=== PATIENT | female | born 1955 | race Caucasian/White ===

== ENCOUNTER 2017-08-28 09:58 | Inpatient (IN) | payer OTHER ==
[~2017-08-28] VITALS: Ht 165.1 cm; Wt 81.8 kg
[~2017-08-28 09:58] MED LIST: ASPI-482 PO; ATOR40TA PO; CALC-77 PO; CALC500T30 PO; CARV12.5 PO; CHLO25TA PO; CLON0.1T12 PO; DILT240C32 PO; GABA-587 PO; LOSA25TA PO; TRAM50TA PO; VIT1TABL2 PO
--- NOTE | 2017-08-28 10:11 | PHYS DOC ---
Past History Past Medical History: Hypertension Past Surgical History: Hysterectomy, Lumbar Laminectomy Smoking: Cigar Alcohol Use: Heavy Drug Use: None Adult General HPI HPI Patient is a 62-year-old female presenting to the emergency department for evaluation of cough and shortness of breath. Patient has been ill for approximately one week with upper respiratory symptoms and she was at a recheck today and was worsening and had a room air auction saturation in the mid to low 80s. They told her to come to the emergency department for further evaluation. Patient says that she has a nonproductive cough and she denies any pain or swelling. She described a vague cardiac history where part of her heart did not beat fully on a stress test which she denied any outright congestive heart failure. She says that she used to smoke cigarettes but now only smokes cigars but denies any history of asthma or COPD. She is mild to moderate short of breath after walking to the room but is nontoxic in appearance with a room air sat of 85%. Review of Systems Review of Systems Constitutional: Denies fever or chills [] Eyes: Denies change in visual acuity, redness, or eye pain [] HENT: + nasal congestion, sore throat [] Respiratory: + cough, shortness of breath [] Cardiovascular: No additional information not addressed in HPI [] GI: Denies abdominal pain, nausea, vomiting, bloody stools or diarrhea [] : Denies dysuria or hematuria [] Musculoskeletal: Denies back pain or joint pain [] Integument: Denies rash or skin lesions [] Neurologic: Denies headache, focal weakness or sensory changes [] All other systems were reviewed and found to be within normal limits, except as documented in this note. Allergies Allergies Allergies Coded Allergies Type Severity Reaction Last Updated Verified No Known Drug Allergies 01/18/14 No Physical Exam Physical Exam Constitutional: Well developed, well nourished, mild to moderate respiratory distress, non-toxic appearance. [] HENT: Normocephalic, atraumatic, bilateral external ears normal, oropharynx moist, no oral exudates, nasal turbinates boggy and swollen Eyes: PERRLA, EOMI, conjunctiva normal, no discharge. [] Neck: Normal range of motion, no tenderness, supple, no stridor. [] Cardiovascular:Heart rate regular rhythm, no murmur [] Lungs & Thorax: Bilateral breath sounds diminished in all lung aceves with expiratory wheezes auscultated. Abdomen: Bowel sounds normal, soft, no tenderness, no masses, no pulsatile masses. [] Skin: Warm, dry, no erythema, no rash. [] Back: No tenderness, no CVA tenderness. [] Extremities: No tenderness, no cyanosis, no clubbing, ROM intact, no edema. [] Neurologic: Alert and oriented X 3, normal motor function, normal sensory function, no focal deficits noted. [] EKG EKG Sinus rhythm at 72 beats per minutes with normal axis no obvious ST elevation or depression and normal T waves Radiology/Procedures Radiology/Procedures Portable chest, 08/28/2017: History: Shortness of breath, URI The heart size and pulmonary vascularity are normal. No pulmonary infiltrates are seen. There is no evidence of pleural fluid. Spinal stimulator leads are projected over the lower thoracic spinal canal. IMPRESSION: No acute cardiopulmonary abnormality is detected. DICTATED AND SIGNED BY: VENUS MCINTYRE MD DATE: 08/28/17 1041 Course & Med Decision Making Course & Med Decision Making Clinically patient has upper respiratory tract infection which is causing her postnasal drip and resultant wheezing. She was given multiple breathing treatments but unfortunately was still requiring oxygen to maintain sats in the low 90s. Given she is persistently hypoxic she will be admitted for further observation and treatment. She did receive a dose of methylprednisolone emergency department. I highly doubt cardiac or pulmonary embolism as the etiology to her hypoxia and she is not tachycardic. The lab cannot run a BNP at this time and has to be sent to another facility so that is pending at this point. Patient admitted in improved condition. Dragon Disclaimer Dragon Disclaimer This electronic medical record was generated, in whole or in part, using a voice recognition dictation system. Departure Departure: Impression: Primary Impression: Hypoxia Additional Impressions: URI (upper respiratory infection) Wheezing Hypokalemia Disposition: ADMITTED INPATIENT Admitting Physician: Mitesh Herrera Condition: IMPROVED Referrals: MARIA TERESA LAYNE (PCP) Problem Qualifiers ZAYNAB TREJO DO Aug 28, 2017 10:11
[2017-08-28] MEDS ORDERED: methylPREDNISolone SOD SUCC PF 125 MG/2 ML VIAL. IV ONE (10:30)
[2017-08-28] MEDS ORDERED: BENZONATATE 100 MG CAPSULE. PO ONE (10:30)
[2017-08-28] MEDS ORDERED: IPRATRPIUM/ALBUTEROL 0.5/2.5MG 3 ML NEBU. NEB ONE (10:30)
--- NOTE | 2017-08-28 10:33 | EKG ---
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
--- NOTE | 2017-08-28 10:46 | RAD ---
Portable chest, 08/28/2017: History: Shortness of breath, URI The heart size and pulmonary vascularity are normal. No pulmonary infiltrates are seen. There is no evidence of pleural fluid. Spinal stimulator leads are projected over the lower thoracic spinal canal. IMPRESSION: No acute cardiopulmonary abnormality is detected.
[2017-08-28 11:03] LABS: BASO % 1 % (0-3); EOS % 1 % (0-3); HEMOGLOBIN 14.2 g/dL (12.0-15.5); LYMPH # 1.2 x10^3/uL (1.0-4.8); LYMPH % 15 % (24-48); MEAN CORPUSCULAR HEMOGLOBIN 35 pg (25-35); MEAN CORPUSCULAR HGB CONC 36 g/dL (31-37); MEAN CORPUSCULAR VOLUME 100 fL (79-100); MONO # 0.9 x10^3/uL (0.0-1.1); MONO % 12 % (0-9); NEUT # 5.4 x10^3uL (1.8-7.7); NEUT % 72 % (31-73); PLATELET COUNT 214 x10^3/uL (140-400); RED BLOOD COUNT 4.02 x10^6/uL (3.50-5.40); RED CELL DISTRIBUTION WIDTH 11.8 % (11.5-14.5); WHITE BLOOD COUNT 7.6 x10^3/uL (4.0-11.0)
[2017-08-28 11:10] LABS: POTASSIUM ISTAT 3.2 mmol/L (3.5-5.0)
[2017-08-28 11:11] LABS: HEMOGLOBIN ISTAT 13.6 gm/dL
[2017-08-28] MEDS ORDERED: ALBUTEROL SULFATE 2.5 MG/3 ML NEBU. NEB ONE (11:30)
[2017-08-28 11:41] LABS: INFLUENZA A PATIENT NEGATIVE (NEGATIVE); INFLUENZA B PATIENT NEGATIVE (NEGATIVE)
[2017-08-28] MEDS ORDERED: POTASSIUM CL 40MEQ IN 0.9%NACL 1,000 ML IV ONE (11:45)
[2017-08-28] MEDS ORDERED: POTASSIUM CHLORIDE 20 MEQ TABLET.ER. PO ONE (11:45)
[2017-08-28] MEDS ORDERED: MAGNESIUM OXIDE 400 MG TABLET PO ONE (11:45)
[2017-08-28] MEDS ORDERED: ONDANSETRON PF 4 MG/2 ML VIAL. IV PRN (11:45)
[2017-08-28 14:09] LABS: ALBUMIN 3.8 g/dL (3.4-5.0); ALK PHOS 70 U/L (46-116); ALT (SGPT) 36 U/L (14-59); AST (SGOT) 44 U/L (15-37); TOTAL BILIRUBIN 0.8 mg/dL (0.2-1.0); TOTAL PROTEIN 7.3 g/dL (6.4-8.2)
[2017-08-28 14:17] LABS: DIRECT BILIRUBIN < 0.1 mg/dL (0.0-0.2)
[2017-08-28] MEDS ORDERED: ASCO10002 PO (15:03)
[2017-08-28] MEDS ORDERED: TELM80TA PO (15:03)
[2017-08-28 15:08] VITALS: BP 155/87
[2017-08-28] MEDS ORDERED: AMLO10TA4 PO (18:06)
--- NOTE | 2017-08-28 18:32 | HP ---
ADMIT DATE: 08/28/2017 HISTORY OF PRESENT ILLNESS: The patient is a 62-year-old female patient who came to the Emergency Department for evaluation of cough and shortness of breath. She stated that she has been feeling ill for approximately 1 week with upper respiratory symptoms. She went to [facility] as her symptoms have worsened and her saturation on room air was down to 80%. She was told to come to the Emergency Department for further evaluation. She did complain of mostly dry non-productive cough, but denied any chills, rigors or fever. She stated that she has been followed by the railway track worker for what seems to be a positive stress test every 6 months, but denied any diagnosis of congestive heart failure. She has never had any stents in her heart. She used to smoke cigarettes but quit about 8 years ago. She now smokes cigars, she smokes 2 cigars a day but has never been diagnosed with bronchial asthma or COPD. She was evaluated in the Emergency Room, was found to be hypoxic; however, she was also found to be hyponatremic, hypokalemic and a decision was made to admit her to replenish her electrolytes and to treat her what seemed to be a tracheobronchitis and perhaps COPD exacerbation. PAST MEDICAL HISTORY: Significant for hypertension, hyperlipidemia, coronary artery disease, osteoarthritis, degenerative disk disease and multiple arthritis and arthralgias, although she stated that she has never been given any particular name to all her complaints. PAST MEDICAL HISTORY: Significant for 3 spinal surgery and nerve stimulator implant and total abdominal hysterectomy, bilateral salpingo-oophorectomy. ALLERGIES: He has no known drug allergies. MEDICATIONS: He is currently on following medications: Ascorbic acid 1000 mg once a day, aspirin 81 mg once a day, atorvastatin calcium 40 mg at bedtime, carvedilol 12.5 mg twice a day, chlorthalidone 25 mg daily, gabapentin 400 mg 3 times a day, Micardis 80 mg once a day and tramadol 50 mg every 6 hours. FAMILY HISTORY: She has 3 brothers and 1 sister. Her older brother has similar medical complaints like her. SOCIAL HISTORY: She is , has 2 stepsons. She smokes 2 cigars a day, quit smoking cigarettes about 8 years ago. She drinks 2 glasses of wine every night. 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 REVIEW OF SYSTEMS: She denied any blurring of vision, cataract, glaucoma or macular degeneration. Denied any earache, tinnitus or sensorineural deafness. Denied any nosebleeds, stuffy nose or postnasal drip. Denied any sore throat, sore tongue, toothache, hoarseness of voice or difficulty swallowing. She denied any nausea, vomiting, diarrhea or constipation. Denied any hematemesis, melena or hematochezia. Denied any dysuria, frequency or hematuria. She denied any chest pain. Did complain of shortness of breath, cough, which is mostly dry. Denied any chills, rigors, or fever. Denied any dizziness, lightheadedness, or vertigo. PHYSICAL EXAMINATION: GENERAL: On examining her, she was sitting on the edge of the bed comfortably, in no apparent respiratory distress. She was pale, but no jaundice, cyanosis, or thyromegaly. No jugular venous distension. No limb edema. VITAL SIGNS: Her heart rate was 78, blood pressure 116/72, temperature was 98.5, respiratory rate 20, and oxygen saturation was only 87% on room air and improved to 93% on 4 liters of oxygen. HEENT: Showed normocephalic, atraumatic. NECK: Supple. HEART: Showed normal first and second heart sounds with no gallop, rub or murmur. CHEST: ____ She has actually crackles in the left side posteriorly. I could not appreciate any rhonchi. ABDOMEN: Distended, soft, and nontender. NEUROLOGIC: She is awake, alert, responding appropriately. All cranial nerves intact. EXTREMITIES: She moves extremities without difficulty. She ambulates without assistance or assistive devices. LABORATORY DATA: Her lab work on admission showed a white cell count of 7600, hemoglobin 14, hematocrit 40, MCV 100, and platelet count of 214,000 with normal manual differential. Her chemistry showed that her serum sodium was 129, potassium 3.2, chloride 81, bicarbonate 38, anion gap of 15, BUN 15, creatinine 0.6, glucose was 99 and ionized calcium was 1.1. Total bilirubin, AST, ALT, alkaline phosphatase were normal. Her total protein was 7.3, albumin 3.8. Her influenza A and B were negative. Her chest x-ray showed the heart size and pulmonary vascularity are normal. No pulmonary infiltrates are seen. There is no evidence of pleural fluid, spinal stimulator leads are projected over the lower thoracic spinal canal. She has no acute cardiopulmonary abnormalities detected. IMPRESSION: In summary, this is a 62-year-old female patient who used to be a smoker of cigarettes, now cigars who basically came with increasing shortness of breath, cough, marked hypoxia. PLAN: My plan is to treat her with the bronchodilator, steroids and antibiotics. Continue with IV fluid to replenish her sodium and potassium deficits and hold her hydrochlorothiazide as probably that could be the reason for his as well as Micardis. I will repeat all her lab work tomorrow and we might have to do a CT scan of the chest with PE protocol and also arterial blood gases if her bicarbonate continued to rise. ROCIO TRONCOSO MD DR: NATHANIEL/nayan JOB#: [id number] / [id number]
[2017-08-28 19:00] VITALS: BP 143/84
[2017-08-28] MEDS: POTASSIUM CL 40MEQ IN 0.9%NACL 1,000 ML IV SCH (19:44)
[2017-08-28] MEDS: cefTRIAXone IV Push 1 GM VIAL. IVP SCH ×2 (19:44→20:04)
[2017-08-28] MEDS: ASCORBIC ACID 500 MG TABLET PO SCH (21:28)
[2017-08-28] MEDS: MONTELUKAST 10 MG TABLET. PO SCH (21:29)
[2017-08-28] MEDS: CARVEDILOL 12.5 MG TABLET PO SCH (21:29)
[2017-08-28] MEDS: ATORVASTATIN CALCIUM 20 MG TABLET PO SCH (21:29)
[2017-08-28] MEDS: traMADol 50 MG TABLET PO PRN (21:41)
[2017-08-28] MEDS: methylPREDNISolone SOD SUCC PF 40 MG/ML VIAL. IV SCH (22:10)
[2017-08-28] MEDS: IPRATRPIUM/ALBUTEROL 0.5/2.5MG 3 ML NEBU. NEB SCH (22:53)
[2017-08-28 23:06] VITALS: BP 129/74
[2017-08-29] MEDS: POTASSIUM CL 40MEQ IN 0.9%NACL 1,000 ML IV SCH ×3 (01:34→13:51)
[2017-08-29] MEDS: IPRATRPIUM/ALBUTEROL 0.5/2.5MG 3 ML NEBU. NEB SCH ×4 (05:50→20:43)
[2017-08-29 05:57] VITALS: BP 170/94
[2017-08-29] MEDS: methylPREDNISolone SOD SUCC PF 40 MG/ML VIAL. IV SCH ×2 (06:33→13:52)
[2017-08-29] MEDS: traMADol 50 MG TABLET PO PRN ×2 (07:27→13:49)
[2017-08-29 07:36] LABS: ALBUMIN 3.1 g/dL (3.4-5.0); ALBUMIN/GLOBULIN RATIO 0.8 (1.0-1.7); CALCIUM 8.9 mg/dL (8.5-10.1); CREATININE 0.4 mg/dL (0.6-1.0); GFR 162.8; TOTAL BILIRUBIN 0.5 mg/dL (0.2-1.0); TOTAL PROTEIN 7.2 g/dL (6.4-8.2)
[2017-08-29 07:39] LABS: POTASSIUM 3.7 mmol/L (3.5-5.1)
[2017-08-29 07:52] LABS: BASO % 0 % (0-3); EOS % 0 % (0-3); HEMOGLOBIN 14.9 g/dL (12.0-15.5); LYMPH # 0.8 x10^3/uL (1.0-4.8); LYMPH % 5 % (24-48); MEAN CORPUSCULAR HEMOGLOBIN 35 pg (25-35); MEAN CORPUSCULAR HGB CONC 36 g/dL (31-37); MEAN CORPUSCULAR VOLUME 99 fL (79-100); MONO # 0.9 x10^3/uL (0.0-1.1); MONO % 5 % (0-9); NEUT # 14.5 x10^3uL (1.8-7.7); NEUT % 89 % (31-73); PLATELET COUNT 257 x10^3/uL (140-400); RED BLOOD COUNT 4.25 x10^6/uL (3.50-5.40); RED CELL DISTRIBUTION WIDTH 11.8 % (11.5-14.5); WHITE BLOOD COUNT 16.3 x10^3/uL (4.0-11.0)
[2017-08-29] MEDS: AZITHROMYCIN 250 MG TABLET. PO SCH (08:38)
[2017-08-29] MEDS: CARVEDILOL 12.5 MG TABLET PO SCH ×2 (08:39→20:03)
[2017-08-29] MEDS: amLODIPine BESYLATE 10 MG TABLET PO SCH (08:39)
[2017-08-29] MEDS: CALCIUM CARB/VIT D3 500/200 TABLET PO SCH ×2 (08:39→17:18)
[2017-08-29] MEDS: GABAPENTIN 400 MG CAPSULE. PO SCH ×3 (08:39→17:18)
[2017-08-29] MEDS ORDERED: IBUP800T19 PO (08:45)
[2017-08-29] MEDS ORDERED: PNEUMOC CONJ VACC 23-VALENT 0.5 ML VIAL. VAX IM ONE (09:00)
[2017-08-29] MEDS ORDERED: ASPIRIN ENTERIC COATED 81 MG TABLET.DR. PO SCH (09:00)
[2017-08-29 09:05] LABS: % BANDS 7 % (0-9); % LYMPHS 7 % (24-48); % MONOS 7 % (0-10); % SEGS 79 % (35-66)
[2017-08-29 09:06] LABS: PLT ESTIMATE ADEQUATE (ADEQUATE); POLYCHROMASIA SLIGHT
[2017-08-29 10:58] VITALS: BP 117/72
[2017-08-29] MEDS: LACTOBACILLUS RHAMNOSUS GG 1 CAPSULE. PO SCH ×2 (12:19→20:03)
[2017-08-29] MEDS ORDERED: IBUPROFEN 800 MG TABLET. PO SCH (12:30)
[2017-08-29 16:24] VITALS: BP 131/78
[2017-08-29] MEDS ORDERED: traMADol 50 MG TABLET PO PRN ×2 (17:45)
[2017-08-29] MEDS: traMADol 50 MG TABLET PO SCH ×2 (18:00→21:30)
[2017-08-29] MEDS: IBUPROFEN 800 MG TABLET. PO SCH (18:01)
[2017-08-29] MEDS: cefTRIAXone IV Push 1 GM VIAL. IVP SCH (18:02)
[2017-08-29 19:00] VITALS: BP 152/86
[2017-08-29] MEDS: MONTELUKAST 10 MG TABLET. PO SCH (20:03)
[2017-08-29] MEDS: ATORVASTATIN CALCIUM 20 MG TABLET PO SCH (20:03)
[2017-08-29] MEDS: ASCORBIC ACID 500 MG TABLET PO SCH (20:03)
[2017-08-29] MEDS: ASPIRIN ENTERIC COATED 81 MG TABLET.DR. PO SCH (21:00)
--- NOTE | 2017-08-29 22:48 | PN ---
DATE: 08/29/2017 SUBJECTIVE: The patient is resting slightly propped up in bed, in no apparent distress. She continued to be somewhat hypoxic. Her oxygen saturation is only 91% on 3 liters of oxygen. However, she seemed to be less tachypneic than yesterday. PHYSICAL EXAMINATION: GENERAL: When I examined her, she looked pale, but no jaundice, cyanosis, or thyromegaly. No jugular venous distension. No limb edema. VITAL SIGNS: Her heart rate was 74, blood pressure was 117/72, temperature was 98.____, respiratory rate 20, and oxygen saturation was 93% on 3 liters of oxygen. HEAD, EYES, EARS, NOSE AND THROAT: Showed normocephalic, atraumatic. NECK: Supple. HEART: Showed normal first and second sounds. No gallop, rub or murmur. CHEST: Showed central trachea, equal reduced expansion, reduced air entry, vesicular breath sounds, very few scattered rhonchi, could not appreciate any crepitation. ABDOMEN: Scaphoid, soft, nontender. NEUROLOGIC: She is awake, alert, responding appropriately. Cranial nerves are intact. She moves her extremities without difficulty. She ambulates without assistance or assistive devices. Her intake over the last 24 hours was 1960, no output was recorded. LABORATORY DATA: Her lab work this morning showed a serum sodium is slightly up at 131, potassium up to 3.7, chloride was 90, bicarbonate 33, anion gap of 8, BUN was 8, creatinine 0.4. Her estimated GFR was 163 mL per minute. Her glucose 159, calcium was 8.9. Total bilirubin, AST, ALT, and alkaline phosphatase were normal. Her total protein was 7.2, albumin 3.1. Her influenza A and B were negative. Her cultures still negative at this time. ASSESSMENT: 1. Acute hypoxic respiratory failure. 2. Chronic obstructive pulmonary disease exacerbation. 3. Probable tracheobronchitis. My plan is to continue with IV fluid, IV steroids. 4. She also has hyponatremia and hypokalemia. PLAN: My plan is to continue with bronchodilator, steroids and antibiotic. Continue IV fluid and replenish her potassium and sodium and hopefully by tomorrow, we can get her off oxygen and can be discharged home on tapering course of steroids as well as antibiotics. ROCIO TRONCOSO MD DR: Mark JOB#: [id number] / [id number]
[2017-08-29 23:08] VITALS: BP 149/85
[2017-08-30] MEDS: POTASSIUM CL 40MEQ IN 0.9%NACL 1,000 ML IV SCH ×3 (00:45→20:00)
[2017-08-30] MEDS: methylPREDNISolone SOD SUCC PF 40 MG/ML VIAL. IV SCH ×2 (01:44→13:09)
[2017-08-30] MEDS: GABAPENTIN 400 MG CAPSULE. PO SCH ×3 (04:33→17:11)
[2017-08-30] MEDS: IBUPROFEN 800 MG TABLET. PO SCH ×3 (04:34→17:12)
[2017-08-30] MEDS: traMADol 50 MG TABLET PO SCH ×4 (04:34→20:55)
[2017-08-30 05:22] VITALS: BP 162/82
[2017-08-30] MEDS: IPRATRPIUM/ALBUTEROL 0.5/2.5MG 3 ML NEBU. NEB SCH ×4 (05:28→20:39)
[2017-08-30] MEDS: amLODIPine BESYLATE 10 MG TABLET PO SCH (08:50)
[2017-08-30] MEDS: CALCIUM CARB/VIT D3 500/200 TABLET PO SCH ×2 (08:50→17:11)
[2017-08-30] MEDS: CARVEDILOL 12.5 MG TABLET PO SCH ×2 (08:50→20:54)
[2017-08-30] MEDS: AZITHROMYCIN 250 MG TABLET. PO SCH (08:51)
[2017-08-30] MEDS: LACTOBACILLUS RHAMNOSUS GG 1 CAPSULE. PO SCH ×2 (08:51→20:54)
[2017-08-30 10:43] VITALS: BP 107/69
[2017-08-30 15:10] VITALS: BP 155/89
[2017-08-30] MEDS ORDERED: IOHEXOL 300 MG/ML 75 ML VIAL. IV ONE (16:45)
[2017-08-30] MEDS ORDERED: CONTRAST GIVEN MC PRN (17:00)
[2017-08-30] MEDS: cefTRIAXone IV Push 1 GM VIAL. IVP SCH (17:15)
--- NOTE | 2017-08-30 18:16 | RAD ---
CTA OF THE CHEST WITH AND WITHOUT CONTRAST Clinical indications: Shortness of breath for 3 days. History of COPD. Hypoxia. Technique: Noncontrast axial localizer was performed. After IV infusion of 75 cc of Isovue-370, helical CT scanning of the chest was performed using the CT pulmonary embolism protocol. A coronal MIP reconstruction was generated. Comparison: None available. Findings: No pulmonary embolism is evident. No thoracic aortic dissection or focal aneurysmal dilatation is seen. Calcified atheromatous disease of the coronary arteries is seen. No pericardial effusion is seen. Heart size is within normal limits. No enlarged thoracic lymphadenopathy is seen. Decreased inspiration is seen. Bibasilar atelectasis is evident. More consolidative infiltrate is seen within the posterior right lower lobe. Certainly underlying pneumonia could be present here. No pleural effusion or pneumothorax is seen. The proximal bronchial tree is patent. No adrenal mass is evident. No osteolytic process is seen. IMPRESSION: No pulmonary embolism. Decreased inspiration with bibasilar atelectasis. More consolidative lung infiltrate within the right lower lobe. This could represent more prominent atelectasis or pneumonia. Calcified atheromatous disease of the coronary arteries. Electronically signed by: Simone Ceron MD (08/30/2017 6:13 PM) [facility]
[2017-08-30 19:18] VITALS: BP 138/84
[2017-08-30] MEDS: ASPIRIN ENTERIC COATED 81 MG TABLET.DR. PO SCH (20:53)
[2017-08-30] MEDS: ATORVASTATIN CALCIUM 20 MG TABLET PO SCH (20:54)
[2017-08-30] MEDS: MONTELUKAST 10 MG TABLET. PO SCH (20:54)
[2017-08-30] MEDS: ASCORBIC ACID 500 MG TABLET PO SCH (20:55)
[2017-08-30 23:10] VITALS: BP 162/98
--- NOTE | 2017-08-30 23:31 | PN ---
DATE: 08/30/2017 SUBJECTIVE: The patient was sitting in the bed comfortably in no apparent distress. However, unfortunately she continued to be hypoxic, even at rest the oxygen saturation dropped down to 87% on room air, on exertion her oxygen saturation dropped down to 84%, although the patient denied any chest pain or shortness of breath. OBJECTIVE: GENERAL: When I examined her today, she looked pale, no jaundice, cyanosis, or thyromegaly. No jugular venous distension. No limb edema. VITAL SIGNS: Her heart rate was 81, blood pressure was 155/89, temperature was 97.6, respiratory rate 20, and oxygen saturation was 92 on 3 liters of oxygen, was 87 on room air sitting and 84 walking. HEAD, EYES, EARS, NOSE, AND THROAT: Showed normocephalic, atraumatic. NECK: Supple. HEART: Showed normal first and second heart sounds with no gallop, rub, or murmur. CHEST: Shows central trachea, equal reduced expansion, reduced air entry, vesicular sounds. I could not really appreciate any crepitation or rhonchi. ABDOMEN: Distended, soft, nontender. NEUROLOGIC: She is awake, alert, responding appropriately. Cranial nerves intact. She moves extremities without difficulty. She ambulates with a walker. Her intake over the last 24 hours was 2300 and out was not recorded. No lab work was done today. ASSESSMENT: 1. Acute hypoxic respiratory failure. 2. Chronic obstructive pulmonary disease exacerbation. 3. Probable tracheobronchitis. 4. Hyponatremia and hypokalemia. PLAN: To continue the IV fluid, continue with steroids and bronchodilator. Continue IV antibiotic in the form of Rocephin and Zithromax. I will repeat all her lab works tomorrow. I also arranged for her to have a CT angio of the chest to eliminate the possibility of pulmonary emboli with a plan to discharge her home with home oxygen tomorrow. ROCIO TRONCOSO MD DR: NATHANIEL/nayan JOB#: [id number] / [id number]
[2017-08-31] MEDS: methylPREDNISolone SOD SUCC PF 40 MG/ML VIAL. IV SCH ×2 (01:35→13:56)
[2017-08-31] MEDS: POTASSIUM CL 40MEQ IN 0.9%NACL 1,000 ML IV SCH (03:33)
[2017-08-31] MEDS: traMADol 50 MG TABLET PO SCH ×2 (04:38→11:07)
[2017-08-31] MEDS: IBUPROFEN 800 MG TABLET. PO SCH ×2 (04:38→11:07)
[2017-08-31] MEDS: GABAPENTIN 400 MG CAPSULE. PO SCH ×2 (04:38→11:07)
[2017-08-31] MEDS: IPRATRPIUM/ALBUTEROL 0.5/2.5MG 3 ML NEBU. NEB SCH ×2 (04:56→09:50)
[2017-08-31 05:37] VITALS: BP 149/76
[2017-08-31 07:45] LABS: BASO % 0 % (0-3); EOS % 0 % (0-3); HEMATOCRIT 43.1 % (36.0-47.0); HEMOGLOBIN 14.9 g/dL (12.0-15.5); LYMPH # 0.7 x10^3/uL (1.0-4.8); LYMPH % 6 % (24-48); MEAN CORPUSCULAR HEMOGLOBIN 35 pg (25-35); MEAN CORPUSCULAR HGB CONC 35 g/dL (31-37); MEAN CORPUSCULAR VOLUME 101 fL (79-100); MONO # 0.6 x10^3/uL (0.0-1.1); MONO % 5 % (0-9); NEUT # 10.4 x10^3uL (1.8-7.7); NEUT % 89 % (31-73); PLATELET COUNT 338 x10^3/uL (140-400); RED BLOOD COUNT 4.28 x10^6/uL (3.50-5.40); RED CELL DISTRIBUTION WIDTH 12.1 % (11.5-14.5); WHITE BLOOD COUNT 11.7 x10^3/uL (4.0-11.0)
[2017-08-31 07:47] LABS: ALBUMIN/GLOBULIN RATIO 0.7 (1.0-1.7); CALCIUM 8.9 mg/dL (8.5-10.1); CREATININE 0.5 mg/dL (0.6-1.0); GFR 125.9; MAGNESIUM 1.6 mg/dL (1.8-2.4); POTASSIUM 4.3 mmol/L (3.5-5.1); TOTAL BILIRUBIN 0.3 mg/dL (0.2-1.0); TOTAL PROTEIN 7.3 g/dL (6.4-8.2)
[2017-08-31] MEDS: CALCIUM CARB/VIT D3 500/200 TABLET PO SCH (08:00)
[2017-08-31] MEDS: CARVEDILOL 12.5 MG TABLET PO SCH (08:32)
[2017-08-31] MEDS: LACTOBACILLUS RHAMNOSUS GG 1 CAPSULE. PO SCH (08:32)
[2017-08-31] MEDS: amLODIPine BESYLATE 10 MG TABLET PO SCH (08:33)
[2017-08-31] MEDS: AZITHROMYCIN 250 MG TABLET. PO SCH (08:33)
[2017-08-31 09:45] VITALS: BP 151/84
[2017-08-31] MEDS ORDERED: MAGNESIUM SULFATE 2GM 50 ML IV ONE (10:30)
[2017-08-31 14:37] VITALS: BP 147/84
[2017-08-31] MEDS ORDERED: AZIT250T PO (15:51)
[2017-08-31] MEDS ORDERED: CEFP200T PO (15:52)
--- NOTE | 2017-08-31 18:55 | DS ---
DATE OF DISCHARGE: 08/31/2017 HOSPITAL COURSE: The patient is a 62-year-old female patient who came to the Emergency Room with the complaint of cough with shortness of breath that has been going on for almost a week. She was evaluated at [facility] and her symptoms have worsened and there, she was found to be hypoxic with an oxygen saturation of 180%. She was sent to the Emergency Room of [facility] and was basically admitted with an acute hypoxic respiratory failure, chronic obstructive pulmonary disease exacerbation, probable tracheobronchitis, and she was also hyponatremic and hypokalemic. We did start her on inhalers as well as steroids to better with antibiotics in the form of Zithromax and Rocephin. Her potassium and sodium were replenished and basically, I did also a CT scan of the chest with PE protocol, which basically showed no evidence of pulmonary emboli; however, the patient did have bibasilar atelectasis evident more, consolidated infiltrate is seen within the posterior right lower lobe with the underlying pneumonia could represent here. The patient has no pneumothorax, no pleural effusion. The proximal bronchial tree is patent. No adrenal mass is evident. No osteolytic process seen. We did check her oxygen at rest and to exertion, and she definitely is hypoxic, and with hypoxia worsens with exertion. In fact, yesterday when she walked, her oxygen saturation dropped down to 82%, so arranged her to go home with home oxygen. PHYSICAL EXAMINATION: GENERAL: When I saw her today, she looked well and was clearly in no apparent respiratory distress, slightly pale, but no jaundice, cyanosis or thyromegaly. No jugular venous distention. No limb edema. VITAL SIGNS: His heart rate was 83, blood pressure 147/84, temperature was 97.5, respiratory rate 20, and oxygen saturation was 93% on 3 liters of oxygen. HEAD, EYES, EARS, NOSE AND THROAT: Showed normocephalic, atraumatic. NECK: Supple. HEART: Showed normal first and second heart sounds with no gallop, rub or murmur. CHEST: Shows central trachea, equal bilateral expansion, air entry, vesicular sounds crepitation or rhonchi. ABDOMEN: Distended, soft, and nontender. NEUROLOGIC: She is awake, alert, responding appropriately. Cranial nerves intact. She moves extremities without difficulty. She ambulates with a walker. She has chronic low back pain. LABORATORY DATA: This morning showed a serum sodium 131, potassium 4.3, chloride 96, bicarbonate 29, anion gap of 6, BUN 11, creatinine 0.5, estimated GFR was 130.6 mL per minute. Her glucose 137, calcium was 8.9, magnesium was 1.6. Total bilirubin, AST, ALT, alkaline phosphatase were normal. Total protein 7.3, albumin was 3. Her white cell count was 11,700, hemoglobin 14.9, hematocrit 43, MCV 101, and platelet count of 338,000. Her chest x-ray was essentially unremarkable; however, CT scan showed that she has no pulmonary embolism; however, it does show that she has consolidative lung infiltrate within the right lower lobe, it could represent prominent atelectasis versus pneumonia. She has also calcified atheromatous disease of the coronary arteries. FINAL DISCHARGE DIAGNOSES: 1. Acute hypoxic respiratory failure. 2. Chronic obstructive pulmonary disease exacerbation. 3. Right lower lobe pneumonia. 4. Hyponatremia, improved. 5. Hypokalemia, resolved. The patient should finish the course of antibiotic, continue with tapering course of steroids. I suggested that she should make an appointment to be seen by Dr. Oconnell and Dr. Travis at [facility]. ROCIO TRONCOSO MD DR: NATHANIEL/nayan JOB#: [id number] / [id number]
== END 2017-08-31 16:45 | disposition home or self-care (01) | DRG 193 ==
LOC: ER 09:58 → 1 SOUTH 12:27
PROVIDERS: ADMIT Internal Medicine; ATTEND Internal Medicine
DX: J18.1 Lobar pneumonia, unspecified organism (principal); J96.01 Acute respiratory failure with hypoxia; E87.1 Hypo-osmolality and hyponatremia; J44.0 Chronic obstructive pulmonary disease with (acute) lower respiratory infection; J44.1 Chronic obstructive pulmonary disease with (acute) exacerbation; E78.5 Hyperlipidemia, unspecified; E87.6 Hypokalemia; F17.290 Nicotine dependence, other tobacco product, uncomplicated; I10 Essential (primary) hypertension; I25.10 Atherosclerotic heart disease of native coronary artery without angina pectoris; M19.90 Unspecified osteoarthritis, unspecified site; Z90.710 Acquired absence of both cervix and uterus; Z90.722 Acquired absence of ovaries, bilateral
CPT/HCPCS: 36415; 71045; 71275; 80047; 80053; 80076; 83735; 83880; 84484; 85007; 85025; 85610; 87804; 90732; 93005; 94640; 94760; 96374; J0456; J0696; J2920; J2930; J3475; J7613; J7620; Q9967; 99285-25

== ENCOUNTER 2020-04-14 23:10 | Emergency (ER) | payer OTHER ==
[~2020-04-14] VITALS: Ht 162.6 cm; Wt 92.9 kg
[~2020-04-14 23:10] MED LIST changes: +AMLO10TA4 PO; +ASCO100019 PO; +AZIT250T PO; +CEFP200T PO; -CHLO25TA PO; +CHLO25TA9 PO; +IBUP800T19 PO; +TELM80TA PO
[2020-04-15] MEDS ORDERED: HYDROmorphone PF 1 MG/ML DISP.SYRIN IVP ONE (01:45)
[2020-04-15 01:46] LABS: ALBUMIN 3.7 g/dL (3.4-5.0); ALBUMIN/GLOBULIN RATIO 0.8 (1.0-1.7); BASO % 0 % (0-3); CALCIUM 9.9 mg/dL (8.5-10.1); CREATININE 0.7 mg/dL (0.6-1.0); EOS % 0 % (0-3); GFR 84.8; HEMATOCRIT 36.3 % (36.0-47.0); HEMOGLOBIN 12.5 g/dL (12.0-15.5); LYMPH # 1.1 x10^3/uL (1.0-4.8); LYMPH % 11 % (24-48); MEAN CORPUSCULAR HEMOGLOBIN 32 pg (25-35); MEAN CORPUSCULAR HGB CONC 35 g/dL (31-37); MEAN CORPUSCULAR VOLUME 93 fL (79-100); MONO # 1.1 x10^3/uL (0.0-1.1); MONO % 11 % (0-9); NEUT % 78 % (31-73); PLATELET COUNT 389 x10^3/uL (140-400); RED BLOOD COUNT 3.89 x10^6/uL (3.50-5.40); TOTAL BILIRUBIN 0.8 mg/dL (0.2-1.0); TOTAL PROTEIN 8.1 g/dL (6.4-8.2); WHITE BLOOD COUNT 10.3 x10^3/uL (4.0-11.0)
[2020-04-15 01:56] LABS: POTASSIUM 2.5 mmol/L (3.5-5.1)
[2020-04-15] MEDS ORDERED: POTASSIUM CL 40MEQ IN 0.9%NACL 1,000 ML IV ONE (02:15)
[2020-04-15 02:22] LABS: AMORPHOUS SEDIMENT,UR PRESENT /HPF; BACTERIA,URINE FEW /HPF (0-FEW); BILIRUBIN,URINE NEG (NEG); CLARITY,URINE HAZY; COLOR,URINE YELLOW; GLUCOSE,URINE NEG (NEG); NITRITE,URINE NEG (NEG); SQUAMOUS EPITHELIAL CELL,UR OCC /LPF; UROBILINOGEN,URINE 0.2 mg/dL (0.2 mg/dL); WBC,URINE OCC /HPF (0-4)
[2020-04-15] MEDS ORDERED: POTASSIUM CHLORIDE 20 MEQ TABLET.ER. PO ONE (02:45)
[2020-04-15 03:08] VITALS: BP 130/71
[2020-04-15] MEDS ORDERED: oxycontin (05:11)
== END 2020-04-15 03:30 | disposition short-term general hospital (02) ==
LOC: ER 23:10
DX: T81.89XA Other complications of procedures, not elsewhere classified, initial encounter (principal); R53.1 Weakness; R33.9 Retention of urine, unspecified; Z98.890 Other specified postprocedural states
CPT/HCPCS: 36415; 51702; 80053; 81001; 85025; 96361; 96374; 99285; J1170